=== PATIENT | male | born 1960 | race Caucasian/White ===

== ENCOUNTER 2018-03-04 22:26 | Emergency (ER) | payer OTHER ==
[~2018-03-04] VITALS: Ht 172.7 cm; Wt 72.1 kg
[2018-03-04 22:33] VITALS: BP 183/110
--- NOTE | 2018-03-04 22:35 | NUR ---
Patient ambulated to bed 3 with family. RN evaluating patient at bedside.
--- NOTE | 2018-03-04 22:36 | NUR ---
PATIENT PRESENTS TO ED WITH NOSEBLEED X4 DAYS. PATIENT STATES HE HAS BEEN SEEN AT [facility] YESTERDAY, AND [facility] FRIDAY AND FRIDAY. PATIENT DENIES HITTING HIS NOSE ON ANYTHING AND STATES IT JUST STARTED OUT OF NOWHERE AND HAS BEEN INTERMITTENT. PATIENT HAS MILD TO MODERATE BLEEDING AT THIS TIME. NOSE CLAMP APPLIED AT THIS TIME. PT DENIES N/V/D; SKIN IS PINK/WARM/DRY; AAOX4 WITH EVEN AND STEADY GAIT; LUNGS CLEAR BL; HR EVEN AND REGULAR; PT DENIES ANY FEVER, CP, SOB, OR COUGH AT THIS TIME; PATIENT STATES PAIN OF 0/10 AT THIS TIME; VSS; PATIENT POSITIONED FOR COMFORT; HOB ELEVATED; BEDRAILS UP X1; BED DOWN. ER MD MADE AWARE OF PT STATUS.
--- NOTE | 2018-03-04 22:55 | NUR ---
Dr. Richard evaluating patient at bedside.
[2018-03-04 23:09] LABS: BASOPHILS # (AUTO) 0.2 K/uL (0.00-0.22); BASOPHILS % (AUTO) 2.4 % (0.0-2.0); EOSINOPHILS # (AUTO) 0.1 K/uL (0-0.4); EOSINOPHILS % (AUTO) 0.8 % (0.0-4.0); HEMATOCRIT 34.1 % (36-52); HEMOGLOBIN 11.9 g/dL (12.0-18.0); LYMPHOCYTES # (AUTO) 2.7 K/uL (2.0-11.5); MEAN CORPUSCULAR HEMOGLOBIN 30 pg (27-31); MEAN CORPUSCULAR HGB CONC 35 g/dL (33-37); MEAN CORPUSCULAR VOLUME 86.5 fL (80-94); MONOCYTES # (AUTO) 0.5 K/uL (0.8-1.0); MONOCYTES % (AUTO) 5.9 % (1.7-9.3); NEUTROPHILS # (AUTO) 4.9 K/uL (1.8-7.7); NEUTROPHILS % (AUTO) 58.9 % (42.2-75.2); PLATELET COUNT (AUTO) 211 K/uL (140-450); RED BLOOD CELL COUNT(AUTO) 3.94 MIL/uL (4.20-6.10); RED CELL DISTRIBUTION WIDTH 12.7 % (11.6-13.7); WHITE BLOOD COUNT (AUTO) 8.4 K/uL (4.8-10.8)
[2018-03-04 23:18] LABS: ANION GAP 13.3 (8-16); CARBON DIOXIDE 29.2 mmol/L (21-32); POTASSIUM 3.5 mmol/L (3.5-5.1)
[2018-03-04] MEDS ORDERED: hydrALAZINE 20 MG/ML VIAL IM ONE (23:20)
[2018-03-04 23:24] LABS: ALBUMIN 3.5 g/dL (3.4-5.0); TOTAL BILIRUBIN 0.3 mg/dL (0.0-1.0)
--- NOTE | 2018-03-04 23:28 | NUR ---
PATIENT TO CT
--- NOTE | 2018-03-04 23:31 | NUR ---
Note chikisastrid in EDM - 03/04/18 at 2334 by [email or web address] Patient discharged with v/s stable. Written and verbal after care instructions given and explained. Patient alert, oriented and verbalized understanding of instructions. Ambulatory with steady gait. All questions addressed prior to discharge. ID band removed. Patient advised to follow up with PMD. Rx of ALBUTEROL AND ZYRTEC given. Patient educated on indication of medication including possible reaction and side effects. Opportunity to ask questions provided and answered.
[2018-03-04 23:33] LABS: PROTHROMBIN TIME 10.4 secs (10.8-13.4)
[2018-03-05] MEDS ORDERED: AZITHROMYCIN 250 MG TAB PO ONE (00:10)
[2018-03-05] MEDS ORDERED: hydrALAZINE 20 MG/ML VIAL IM ONE (00:10)
--- NOTE | 2018-03-05 01:10 | NUR ---
Patient discharged with v/s stable. Written and verbal after care instructions given and explained. Patient alert, oriented and verbalized understanding of instructions. Ambulatory with steady gait. All questions addressed prior to discharge. ID band removed. Patient advised to follow up with PMD. Rx of AZITHROMYCIN given. Patient educated on indication of medication including possible reaction and side effects. Opportunity to ask questions provided and answered.
[2018-03-05 01:29] VITALS: BP 160/76
== END 2018-03-05 01:10 | disposition home or self-care (01) ==
LOC: MED 22:26
DX: R04.0 Epistaxis (principal); I10 Essential (primary) hypertension; D64.9 Anemia, unspecified; J32.9 Chronic sinusitis, unspecified; F17.210 Nicotine dependence, cigarettes, uncomplicated; E11.9 Type 2 diabetes mellitus without complications; E78.5 Hyperlipidemia, unspecified
CPT/HCPCS: 36415; 70450; 80053; 85025; 85610; 85730; 96372; 99285; J0360

== ENCOUNTER 2020-11-01 21:31 | Emergency (ER) | payer OTHER ==
[~2020-11-01] VITALS: Ht 177.8 cm; Wt 99.8 kg
[2020-11-01 21:36] VITALS: BP 155/90
--- NOTE | 2020-11-01 21:36 | NUR ---
to bed ambulatory
--- NOTE | 2020-11-01 21:40 | NUR ---
PATIENT 60 Y/O MALE BIB SELF FOR C/O EPISTAXIS X 15 MIN. PATIENT DENIES INJURY, STATES "BLEW MY NOSE AND IT HASN'T STOPEED BLEEDING." PATIENT STATES, "THIS HAS HAPPED TO BE BREFORE I WAS WORRIED IT HAD TO DO WITH MY HIGH BLOOD PRESSURE." NO ACTIVE BLEEDING NOTED AT THIS TIME. SEE COMPLETE ASSESSMENT FOR FURTHER DETAILS. MEDHX: HTN, HYPERLIPIDEMIA ALELRGIES: ELISEO
--- NOTE | 2020-11-01 21:42 | NUR ---
ERMD AT BEDSIDE EVALUATING PATIENT.
[2020-11-01] MEDS ORDERED: TRANEXAMIC ACID 1,000 MG/10 ML VIAL ONE (22:09)
[2020-11-01] MEDS ORDERED: TRANEXAMIC ACID 1,000 MG/10 ML VIAL MC ONE (22:10)
--- NOTE | 2020-11-01 22:15 | NUR ---
PATIENT CONTINUED TO C/O NOSE BLEED. ERMD GAVE NEW ORDER FOR TRANEXAMIC ACID 1000MG/10ML.
--- NOTE | 2020-11-01 22:22 | NUR ---
TRANEXAMIC ACID ADMINISTERED BY ERMD WITH NASAL PACKING.
--- NOTE | 2020-11-01 22:43 | NUR ---
PER PATIENT, "THE BLEEDING IN MY NOSE HAS GONE DOWN." NASAL PACKING REMAINS IN L NOSTRIL PER ERMD INSTRUCTIONS.
[2020-11-01 23:00] VITALS: BP 140/72
--- NOTE | 2020-11-01 23:00 | NUR ---
Patient discharged with v/s stable. Written and verbal after care instructions given and explained. Patient alert, oriented and verbalized understanding of instructions. Ambulatory with steady gait. All questions addressed prior to discharge. ID band removed. Patient advised to follow up with PMD. Rx of OXYMETAZOLINE given. Patient educated on indication of medication including possible reaction and side effects. Opportunity to ask questions provided and answered.
== END 2020-11-01 23:00 | disposition home or self-care (01) ==
LOC: MED 21:31
DX: R04.0 Epistaxis (principal); E11.9 Type 2 diabetes mellitus without complications; I10 Essential (primary) hypertension; E78.00 Pure hypercholesterolemia, unspecified
CPT/HCPCS: 30901; 99284; J3490